=== PATIENT | male | born 1960 | race Caucasian/White ===

== ENCOUNTER 2017-07-17 12:55 | Inpatient (IN) | payer OTHER ==
[~2017-07-17] VITALS: Ht 185.4 cm; Wt 110.7 kg
[2017-07-25] MEDS ORDERED: ASPI325EC PO (16:21)
[2017-07-25] MEDS ORDERED: Percocet 5-3251 EACH PO (16:21)
[2017-07-25] MEDS ORDERED: PROM25 PO (16:23)
== END 2017-07-25 16:30 | disposition home or self-care (01) | DRG 470 ==
LOC: SURS 07-25 06:12 → PRE IP 07-25 07:30 → SURS 07-25 10:56
PROVIDERS: Orthopaedic Surgery
PROC: 8E0YXBZ Computer Assisted Procedure of Lower Extremity (ICD-10-PCS; 2017-07-25)
PROC: 0SR904A Replacement of Right Hip Joint with Ceramic on Polyethylene Synthetic Substitute, Uncemented, Open Approach (ICD-10-PCS; principal; 2017-07-25 07:30)
DX: M16.11 Unilateral primary osteoarthritis, right hip (principal); M87.051 Idiopathic aseptic necrosis of right femur; E78.5 Hyperlipidemia, unspecified; I10 Essential (primary) hypertension
CPT/HCPCS: 36415; 72170; 86850; 86900; 86901; 88300; 97110; 97116; 97161; 97165; 97530; 97535; C1713; C1776; G8978; G8979; G8980; G8987; G8988; G8989; J0171; J0690; J0735; J1885; J2250; J2795; J3010; J7120